=== PATIENT | male | born 1930 | race Caucasian/White ===

== ENCOUNTER 2017-03-08 10:38 | Observation (INO) | payer MEDICARE, MEDICAID ==
[2017-03-08] MEDS ORDERED: Ibuprofen 200 MG Tab PO PRN (11:56)
[2017-03-08] MEDS ORDERED: Cetirizine 10 MG Tab PO PRN (11:56)
[2017-03-08] MEDS ORDERED: Diatrizoate Meglumine/Diatrizoate Sodium 37% 30 ML Bottle PO SCH (12:00)
--- NOTE | 2017-03-08 15:25 | CR ---
DATE OF SERVICE: 03/08/17 CLINICAL DATA: Other specified symptoms and signs involving the chest PA AND LATERAL CHEST: Comparison is made to a prior exam dated 01/01/15. The heart size is stable. The lungs are hyperexpanded. There are interstitial infiltrates in both lower lungs. There are mild atelectatic changes in both lung bases. The lungs are otherwise clear. No pneumothorax. No pleural effusions. [id number] [facility]
--- NOTE | 2017-03-08 15:40 | CT ---
DATE OF SERVICE: 03/08/17 CLINICAL DATA: Anemia, unspecified, Constipation, unspecified ABDOMEN AND PELVIC CT: Multislice acquisition through the abdomen and pelvis without IV, but with oral contrast was performed. Comparison is made to a prior abdomen and pelvic CT dated 01/16/15. Motion artifact does degrade image quality. There are emphysematous changes in both lower lungs. There are mild atelectatic changes within both lung bases. The lung bases are otherwise clear. The unenhanced liver appears normal. The gallbladder appears normal. The spleen appears normal. The pancreas appears normal. The right and left adrenals appear normal. The right and left kidneys appear normal. No nephrocalcinosis or nephrolithiasis. No hydronephrosis or hydroureter. The bladder is partially fluid-filled and appears normal. The prostate is mildly enlarged. There are calcifications within it consistent with chronic prostatitis. The appendix is not identified. No evidence of appendicitis. There is mild diverticulosis of the descending colon. There is moderate diverticulosis of the sigmoid colon. No evidence of diverticulitis. No free air. No free fluid. No dilated loops of bowel. No adenopathy. No aortic aneurysm. There are bilateral inguinal hernias containing fat. IMPRESSION: No acute abnormalities. [id number] [facility]
[2017-03-08] MEDS: Furosemide 20 MG/2 ML VIAL IVPUSH SCH (21:35)
[2017-03-09] MEDS ORDERED: Furosemide 20 MG/2 ML VIAL ONE (03:26)
[2017-03-09] MEDS: Furosemide 20 MG/2 ML VIAL IVPUSH SCH (03:31)
[2017-03-09] MEDS ORDERED: Ferrous Sulfate 325 MG Tab PO SCH (07:00)
[2017-03-09 08:08] VITALS: BP 119/60
--- NOTE | 2017-03-09 09:03 | PCM.DCSUM1 ---
Discharge Summary - Discharge Data Discharge Date: 03/09/17 Discharge Disposition: Home, Self-Care 01 Condition: Good - Patient Instructions Diet: Heart Healthy Diet Activity: As Tolerated Driving: Do Not Drive Showering/Bathing: May Shower - Discharge Plan Home Medications: Home Meds Amoxicillin/Potassium Clav [Amox Tr-K Clv 875-125 mg Tab] 1 each PO DAILY [History] Docusate Sodium 250 mg PO DAILY 03/08/17 [History] Non-Formulary Medication [NF Drug] 0 each PO DAILY 03/08/17 [History] Polyethylene Glycol 3350 [Miralax] 17 gm PO DAILY 03/08/17 [History] guaiFENesin [Mucinex] 600 mg PO BID 03/08/17 [History] - Discharge Summary/Plan Comment DC Time >30 min.: No Discharge Summary/Plan Comment: Counseled on anemia and f/u Hg levels during clinic f/u in 1 week. Patient counseled on close monitoring for any blood loss and f/u stool studies. Patient to f/u with [employer] as directed. Patient counseled on smoking cessation. F/u as needed. - Patient Data Vitals - Most Recent: Last Vital Signs Temp 36.8 C 03/09/17 08:07 Pulse 64 03/09/17 08:07 Resp 18 03/09/17 08:07 BP 119/60 03/09/17 08:07 Pulse Ox 90 L 03/09/17 08:07 Weight - Most Recent: 81.647 kg I&O - Last 24 hours: Intake & Output 03/08/17 03/09/17 03/09/17 22:59 06:59 14:59 Intake Total 490 420 Output Total 1250 Balance 490 -830 Lab Results - Last 24 hrs: Laboratory Results - last 24 hr 03/08/17 03/08/17 03/08/17 Range/Units 10:51 10:51 11:50 WBC 4.5 D (4.0-11.0) K/uL RBC 2.53 L (4.50-6.50) M/uL Hgb 7.1 L D (13.0-18.0) g/dL Hct 24.1 L D (40.0-54.0) % MCV 95 (76-96) fL MCH 28.1 (27.0-32.0) pg MCHC 29.5 L (31.0-35.0) g/dL RDW 19.8 H (11.0-16.0) % Plt Count 98 L (150-400) K/uL Add Manual Diff Yes Neutrophils % (Manual) 50.0 (45.0-70.0) % Band Neutrophils % 3.0 % Lymphocytes % (Manual) 21.0 (20.0-40.0) % Monocytes % (Manual) 24.0 H (3.0-10.0) % Eosinophils % (Manual) 2.0 (1.0-5.0) % Platelet Estimate Decreased L Hypochromasia Moderate H Poikilocytosis Few Anisocytosis Moderate H Microcytosis Few Macrocytosis Moderate H Target Cells Few H Tear Drop Cells Few H Elliptocytes Few H Acanthocytes (Spur) Few H Sodium 139 (136-145) mmol/L Potassium 4.2 (3.5-5.1) mmol/L Chloride 103 (98-107) mmol/L Carbon Dioxide 29.3 (21.0-32.0) mmol/L Anion Gap 10.9 (5.0-15.0) mmol/L BUN 11 (8-26) mg/dL Creatinine 0.96 D (0.70-1.30) mg/dL Est Cr Clr Drug Dosing 48.94 mL/min Estimated GFR (MDRD) > 60 (>60) MLS/MIN BUN/Creatinine Ratio 11.5 (6-25) Glucose 105 H (74-100) mg/dL Calcium 8.8 (8.5-10.1) mg/dL Total Bilirubin 0.6 (0.0-1.0) mg/dL AST 13 L (15-37) U/L ALT 12 (12-78) U/L Alkaline Phosphatase 58 (46-116) U/L Troponin I < 0.017 (0.000-0.060) ng/mL Total Protein 7.6 (6.4-8.2) g/dL Albumin 3.9 (3.4-5.0) g/dL Globulin 3.7 (2.2-4.2) g/dL Albumin/Globulin Ratio 1.1 (0.8-2.0) Urine Color Urine Appearance (CLEAR) Urine pH (5.0-8.0) Ur Specific [place] (1.003-1.030) Urine Protein (NEGATIVE) mg/dL Urine Glucose (UA) (NEGATIVE) mg/dL Urine Ketones (NEGATIVE) mg/dL Urine Occult Blood (NEGATIVE) Urine Nitrite (NEGATIVE) Urine Bilirubin (NEGATIVE) Urine Urobilinogen (0.2-1.0) E.U./dL Ur Leukocyte Esterase (NEGATIVE) Urine RBC /HPF Urine WBC /HPF Ur Squamous Epith Cells /HPF Urine Bacteria /HPF Blood Type B POSITIVE Gel Antibody Screen Negative Crossmatch See Detail 03/08/17 Range/Units 15:20 WBC (4.0-11.0) K/uL RBC (4.50-6.50) M/uL Hgb (13.0-18.0) g/dL Hct (40.0-54.0) % MCV (76-96) fL MCH (27.0-32.0) pg MCHC (31.0-35.0) g/dL RDW (11.0-16.0) % Plt Count (150-400) K/uL Add Manual Diff Neutrophils % (Manual) (45.0-70.0) % Band Neutrophils % % Lymphocytes % (Manual) (20.0-40.0) % Monocytes % (Manual) (3.0-10.0) % Eosinophils % (Manual) (1.0-5.0) % Platelet Estimate Hypochromasia Poikilocytosis Anisocytosis Microcytosis Macrocytosis Target Cells Tear Drop Cells Elliptocytes Acanthocytes (Spur) Sodium (136-145) mmol/L Potassium (3.5-5.1) mmol/L Chloride (98-107) mmol/L Carbon Dioxide (21.0-32.0) mmol/L Anion Gap (5.0-15.0) mmol/L BUN (8-26) mg/dL Creatinine (0.70-1.30) mg/dL Est Cr Clr Drug Dosing mL/min Estimated GFR (MDRD) (>60) MLS/MIN BUN/Creatinine Ratio (6-25) Glucose (74-100) mg/dL Calcium (8.5-10.1) mg/dL Total Bilirubin (0.0-1.0) mg/dL AST (15-37) U/L ALT (12-78) U/L Alkaline Phosphatase (46-116) U/L Troponin I (0.000-0.060) ng/mL Total Protein (6.4-8.2) g/dL Albumin (3.4-5.0) g/dL Globulin (2.2-4.2) g/dL Albumin/Globulin Ratio (0.8-2.0) Urine Color Yellow Urine Appearance Clear (CLEAR) Urine pH 7.0 (5.0-8.0) Ur Specific [place] 1.020 (1.003-1.030) Urine Protein 30 H (NEGATIVE) mg/dL Urine Glucose (UA) Negative (NEGATIVE) mg/dL Urine Ketones Negative (NEGATIVE) mg/dL Urine Occult Blood Negative (NEGATIVE) Urine Nitrite Negative (NEGATIVE) Urine Bilirubin Negative (NEGATIVE) Urine Urobilinogen 1.0 (0.2-1.0) E.U./dL Ur Leukocyte Esterase Small H (NEGATIVE) Urine RBC Not seen /HPF Urine WBC 0-5 H /HPF Ur Squamous Epith Cells Few /HPF Urine Bacteria Few /HPF Blood Type Gel Antibody Screen Crossmatch DEBI Results - Last 24 hrs: Microbiology 03/08/17 15:20 Occult Blood (FIT) - Final Stool / Feces Med Orders - Current: Current Medications Cetirizine HCl (Zyrtec) 10 mg PO DAILY PRN PRN Reason: Allergies Diatrizoate Meglum/Diatrizoate Sod (Gastrografin 37%) 30 ml PO ASDIRECTED LUCIEN Ferrous Sulfate (Ferrous Sulfate) 325 mg PO WITHBREAKFAST LUCIEN Furosemide (Lasix) 20 mg IVPUSH ONETIME LUCIEN Last Admin: 03/09/17 03:31 Dose: 20 mg Ibuprofen (Motrin) 200 mg PO BID PRN PRN Reason: Pain Discontinued Medications Furosemide (Lasix) Confirm Administered Dose 20 mg .ROUTE .STK-MED ONE Stop: 03/09/17 03:27 Last Admin: 03/09/17 03:36 Dose: Not Given *Q Meaningful Use (DIS) - VTE *Q VTE Criteria *Q: - Stroke *Q Stroke Criteria *Q: - AMI *Q AMI Criteria *Q:
[2017-03-11 02:16] LABS: CAMPYLOBACTER (by PCR) Negative (NEG); SALMONELLA SPECIES (by PCR) Negative (NEG); SHIG OR ENTEROPATH ECOLI (PCR) Negative (NEG); SHIGA TOXIN PRODUC ECOLI (PCR) Negative (NEG)
== END 2017-03-09 09:25 | disposition home or self-care (01) ==
LOC: LB.CT 10:38 → LB.MS 11:54
PROVIDERS: ADMIT Family Medicine; ATTEND Family Medicine
DX: I45.10 Unspecified right bundle-branch block (principal); K59.00 Constipation, unspecified; R07.9 Chest pain, unspecified; D64.9 Anemia, unspecified; J98.11 Atelectasis; R09.89 Other specified symptoms and signs involving the circulatory and respiratory systems; K40.20 Bilateral inguinal hernia, without obstruction or gangrene, not specified as recurrent; Z79.899 Other long term (current) drug therapy
CPT/HCPCS: 36415; 36430; 71020; 74176; 80053; 81001; 82274; 84484; 85025; 86850; 86900; 86901; 86920; 86922; 87177; 87209; 87493; 87505; 99217; 99219; G0378; J1940; P9016